=== PATIENT | male | born 1990 | race Caucasian/White ===

== ENCOUNTER 2018-02-18 17:05 | Emergency (ER) | payer MEDICAID ==
--- NOTE | 2018-02-18 17:28 | Emergency Department Record ---
History of Present Illness - General Chief complaint: Extremity Problem Stated complaint: RT HIP THIGH PAIN/ RT FOOT PAIN Time Seen by Provider: 02/18/18 17:20 Source: Patient, RN notes reviewed Mode of Arrival: Ambulatory - History of Present Illness Initial comments: [place]. complaining of right ankle pain and right hip and thigh pain. Onset/Timin -: Hour(s) Location: Right, Foot, Thigh Severity scale (1-10): 6 Consistency: Constant, Intermittent - Related Data Previous Rx's Medication Instructions Recorded Naproxen [Naprosyn] 500 mg PO BID #20 tablet 02/18/18 Allergies Allergy/AdvReac Type Severity Reaction Status Date / Time No Known Drug Allergies Allergy Verified 02/18/18 17:15 Travel Screening - Travel/Exposure Within Last 30 Days Have you traveled within the last 30 days?: No - Travel/Exposure Within Last Year Have you traveled outside the [place] in the last year?: No - Additonal Travel Details Have you been exposed to anyone with a communicable illness?: No - Travel Symptoms Symptom Screening: None Review of Systems Reviewed: No additional complaints except as noted below Constitutional: Reports: As per HPI. Denies: Chills, Fever, Malaise, Night sweats, Weakness, Weight change Eyes: Reports: As per HPI. Denies: Eye discharge, Eye pain, Photophobia, Vision change ENT: Reports: As per HPI. Denies: Congestion, Dental pain, Ear pain, Epistaxis , Hearing loss, Throat pain Respiratory: Reports: As per HPI. Denies: Cough, Dyspnea, Hemoptysis, Stridor, Wheezes Cardiovascular: Reports: As per HPI. Denies: Arrhythmia, Chest pain, Dyspnea on exertion, Edema, Murmurs, Orthopnea, Palpitations, Paroxysmal nocturnal dyspnea, Rheumatic Fever, Syncope Endocrine: Reports: As per HPI. Denies: Fatigue, Heat or cold intolerance, Polydipsia, Polyuria Gastrointestinal: Reports: As per HPI. Denies: Abdominal pain, Constipation, Diarrhea, Hematemesis, Hematochezia, Melena, Nausea, Vomiting Genitourinary: Reports: As per HPI. Denies: Dysuria, Frequency, Hematuria, Incontinence, Retention, Testicular pain, Testicular mass, Urgency Musculoskeletal: Reports: As per HPI, Other (pain right hip and thighand ankle) . Denies: Arthralgia, Back pain, Gout, Joint swelling, Myalgia, Neck pain Skin: Reports: As per HPI. Denies: Bruising, Change in color, Change in hair/ nails, Lesions, Pruritus, Rash Neurological: Reports: As per HPI. Denies: Abnormal gait, Confusion, Headache, Numbness, Paresthesias, Seizure, Tingling, Tremors, Vertigo, Weakness Psychiatric: Reports: As per HPI. Denies: Anxiety, Auditory hallucinations, Depression, Homicidal thoughts, Suicidal thoughts, Visual hallucinations Hematological/Lymphatic: Reports: As per HPI. Denies: Anemia, Blood Clots, Easy bleeding, Easy bruising, Swollen glands Past Medical History - SOCIAL HISTORY Smoking Status: Current every day smoker Alcohol Use: None, Rare Drug Use: None - RESPIRATORY Hx Respiratory Disorders: No - CARDIOVASCULAR Hx Cardio Disorders: No - NEURO Hx Neuro Disorders: No - GI Hx GI Disorders: No - Hx Genitourinary Disorders: No - ENDOCRINE Hx Endocrine Disorders: No - MUSCULOSKELETAL Hx Musculoskeletal Disorders: No - PSYCH Hx Psych Problems: No - HEMATOLOGY/ONCOLOGY Hx Hematology/Oncology Disorders: No Family Medical History Any Significant Family History?: Yes Physical Exam - General General Appearance: Alert, Oriented x3, Cooperative, No acute distress - Head Head exam: Normal inspection - Eye Eye exam: Normal appearance, PERRL Pupils: Normal accommodation - ENT ENT exam: Normal exam, Mucous membranes moist, Normal external ear exam, Normal orophraynx, TM's normal bilaterally Ear exam: Normal external inspection. negative: External canal tenderness Nasal Exam: Normal inspection. negative: Discharge, Sinus tenderness Mouth exam: Normal external inspection, Tongue normal Teeth exam: Normal inspection. negative: Dental caries Throat exam: Normal inspection. negative: Tonsillar erythema, Tonsillar exudate - Neck Neck exam: Normal inspection, Full ROM. negative: Tenderness - Respiratory Respiratory exam: Normal lung sounds bilaterally. negative: Respiratory distress - Cardiovascular Cardiovascular Exam: Regular rate, Normal rhythm, Normal heart sounds - GI/Abdominal GI/Abdominal exam: Soft, Normal bowel sounds. negative: Tenderness - Rectal Rectal exam: Deferred - exam: Deferred - Extremities Extremities exam: Normal inspection, Full ROM, Normal capillary refill. negative: Tenderness - Back Back exam: Reports: Normal inspection, Full ROM. Denies: Muscle spasm, Rash noted, Tenderness - Neurological Neurological exam: Alert, Normal gait, Oriented X3, Reflexes normal - Psychiatric Psychiatric exam: Normal affect, Normal mood - Skin Skin exam: Dry, Intact, Normal color, Warm Course Vital Signs 02/18/18 17:07 Temperature 97.8 F Pulse Rate 95 H Respiratory 18 Rate Blood Pressure 147/80 Pulse Ox 99 Disposition Clinical Impression: Contusion, hip Qualifiers: Encounter type: initial encounter Laterality: right Qualified Code(s): S70.01XA - Contusion of right hip, initial encounter Ankle sprain Qualifiers: Encounter type: initial encounter Involved ligament of ankle: posterior talofibular ligament Laterality: right Qualified Code(s): S93.491A - Sprain of other ligament of right ankle, initial encounter Disposition: Home, Self-Care Condition: (1) Good Instructions: Contusion in Adults (ED) Additional Instructions: follow up with family DrLatisha Prescriptions: Naproxen [Naprosyn] 500 mg PO BID #20 tablet Forms: Patient Portal Access Time of Disposition: 18:35 Quality - Quality Measures Quality Measures: N/A - Blood Pressure Screening Does Patient Have Any of the Following: No Blood Pressure Classification: Pre-Hypertensive BP Reading Systolic Measurement: 147 Diastolic Measurement: 80 Screening for High Blood Pressure: < Pre-Hypertensive BP, F/U Documented > [ [id number]] Pre-Hypertensive Follow-up Interventions: Referral to alternative/primary care provider.
[2018-02-18] MEDS ORDERED: NAPROXEN 250 MG TABLET PO ONE (18:53)
--- NOTE | 2018-02-19 12:51 | RADIOLOGY REPORT ---
EXAM: RIGHT FEMUR, TWO VIEWS HISTORY: PATIENT HAS A HISTORY OF FALL. TECHNIQUE: Two views of the right femur are provided without comparison examinations. FINDINGS: There is no radiographic evidence of a fracture or dislocation of the right femur. Soft tissue swelling is noted over the greater trochanter. No radiopaque foreign bodies are identified. Moderate osteoarthritic changes of the right knee are noted. IMPRESSION: SOFT TISSUE SWELLING IS NOTED OVER THE GREATER TROCHANTER WITHOUT RADIOGRAPHIC EVIDENCE OF AN ACUTE FRACTURE OR DISLOCATION OF THE RIGHT FEMUR. JOB NUMBER: [id number] [facility]
--- NOTE | 2018-02-19 12:55 | RADIOLOGY REPORT ---
EXAM: AP PELVIS AND RIGHT HIP HISTORY: PATIENT HAS A HISTORY OF FALL. TECHNIQUE: AP view of the pelvis and two views of the right hip are provided without comparison examinations. FINDINGS: There is no radiographic evidence of a fracture or dislocation of the pelvis. There is no radiographic evidence of a fracture or dislocation of the right hip. Soft tissue swelling is noted over the greater trochanter. No radiopaque foreign bodies are identified. IMPRESSION: NO RADIOGRAPHIC EVIDENCE OF AN ACUTE FRACTURE OR DISLOCATION OF THE RIGHT HIP. SOFT TISSUE SWELLING OVER THE GREATER TROCHANTER IS NOTED. JOB NUMBER: [id number] [facility]
--- NOTE | 2018-02-19 12:57 | RADIOLOGY REPORT ---
EXAM: RIGHT ANKLE HISTORY: PATIENT HAS A HISTORY OF INJURY. TECHNIQUE: Three views of the right ankle are provided without comparison examinations. FINDINGS: There is no radiographic evidence of a fracture or dislocation of the right ankle. The ankle mortise is intact. There is mild soft tissue swelling identified at the inferior aspect of the medial malleolus. Os trigonum is noted at the posterior aspect of the talus. IMPRESSION: MILD SOFT TISSUE SWELLING IS NOTED AT THE INFERIOR ASPECT OF THE MEDIAL MALLEOLUS WITHOUT RADIOGRAPHIC EVIDENCE OF A FRACTURE OR DISLOCATION OF THE RIGHT ANKLE. JOB [facility]BER: [id number] [facility]
== END 2018-02-18 19:04 | disposition home or self-care (01) ==
LOC: ER 17:05
DX: S93.491A Sprain of other ligament of right ankle, initial encounter (principal); S70.01XA Contusion of right hip, initial encounter; F17.210 Nicotine dependence, cigarettes, uncomplicated; Y93.55 Activity, bike riding; Y92.39 Other specified sports and athletic area as the place of occurrence of the external cause
CPT/HCPCS: 99283